=== PATIENT | male | born 2000 | race African-American/Black ===

== ENCOUNTER 2025-07-16 21:35 | Emergency (ER) | payer BC ==
[2025-07-16 23:01] LABS: Hematocrit 40.3 % (38.8-50.0); Hemoglobin 12.6 g/dL (13.5-17.5); Mean Corpuscular Hemoglobin 23.0 pg (27.0-33.0); Mean Corpuscular Volume 73.4 fL (81.2-95.1); Platelet Count 276 10x3/uL (150-450); Red Blood Cell (RBC) Count 5.49 10x6/uL (4.32-5.72); White Blood Cell (WBC) Count 6.76 10x3/uL (3.5-10.5)
[2025-07-16 23:07] LABS: ALT (SGPT) 12 U/L (Less than 45); AST (SGOT) 17 U/L (11-34); Albumin 4.1 g/dL (3.1-4.5); Alkaline Phosphatase 71 U/L (40-110); Anion Gap 13 mmol/L (10-20); BUN (Urea Nitrogen) 15 mg/dL (8.9-20.6); Bilirubin, Total 0.5 mg/dL (0.3-1.2); Calc. Creatinine Clearance 0 mL/min (70-130); Calcium 9.6 mg/dL (7.8-10.44); Carbon Dioxide 25 mmol/L (22-29); Chloride 98 mmol/L (98-107); Globulin 3.4 g/dL (2.4-3.5); Lipase 53 U/L (8-78); Magnesium 1.6 mg/dL (1.6-2.6); Potassium 4.1 mmol/L (3.5-5.1); Sodium 132 mmol/L (136-145)
[2025-07-16 23:08] LABS: Glucose, Urine (Dipstick) >=1000 mg/dL (Negative); Leukocyte Negative (Negative); Protein, Urine (Dipstick) Negative (Neg-Trace); Specific Gravity, Urine 1.010 (1.005-1.030)
[2025-07-16 23:10] LABS: Bacteria/HPF None Seen HPF (None Seen); CAUTI Indications for Culture Dysuria,urgency,freq; RBC/HPF None Seen HPF (0-3); WBC/HPF None Seen HPF (0-3)
[2025-07-16 23:11] LABS: Urine Culture Reflex No No
[2025-07-16 23:14] LABS: Troponin I Less than 0.010 ng/mL (< 0.028)
[2025-07-16 23:19] LABS: Actual Bicarbonate (HCO3v) 23.2 mEq/L (22-28); Analyzer IN Cardio CS ICU; Base Excess -2.2 mEq/L (-2 - +2); Calcium, Ionized (venous) 1.14 mmol/L (1.16-1.32); Chloride (VBG) 97 mmol/L (98-106); Critical Notified By: CP.PH; Hematocrit-VBG 41 % (42.0-52.0); Hemoglobin (Hb) 13.8 g/dL (13.2-17.3); Potassium (VBG) 3.84 mmol/L (3.70-5.30); Puncture Site Other Site; Sodium 134 mmol/L (133-146)
[2025-07-16 23:32] LABS: #Basophils 0.04 10x3/uL (0.0-0.2); #Eosinophils 0.10 10x3/uL (0.0-0.5); #Monocytes 0.50 10x3/uL (0.0-1.1); #Neutrophils 3.39 10x3/uL (1.5-8.4); %Basophils 0.6 % (0.0-2.0); %Eosinophils 1.5 % (0.0-6.0); %Lymphocytes 40.2 % (18.0-47.0); %Monocytes 7.4 % (0.0-10.0); %Neutrophils 50.2 % (40.0-75.0); RBC Morphology Within Normal Limits
[2025-07-16 23:50] LABS: Glucose 608 mg/dL (70-105)
== END 2025-07-17 01:45 | disposition home or self-care (01) ==
LOC: CSHERS 21:35
DX: E11.65 Type 2 diabetes mellitus with hyperglycemia (principal)
CPT/HCPCS: 36416; 80053; 81001; 82010; 82805; 83605; 83690; 83735; 84100; 84484; 85025; 93005; 96360; 96361; J1815